=== PATIENT | female | born 1975 | race Caucasian/White ===

== ENCOUNTER 2020-12-31 14:51 | Emergency (ER) | payer BC ==
[~2020-12-31] VITALS: Ht 167.6 cm; Wt 68.5 kg
[~2020-12-31 14:51] MED LIST: FLEXERIL PO; PERCOCET 5-3251 EACH PO; PREDNISONE 20 M20 MG PO; PROZAC40 MG PO; WELLBUTRIN XL300 M1 PO
[2020-12-31 16:03] LABS: BASOPHILS 0.7 % (0.0-2.0); EOSINOPHILS 0.8 % (0.0-3.0); HEMATOCRIT 37.1 % (37.0-47.0); HEMOGLOBIN 12.4 gm/dL (12.0-15.0); LYMPHOCYTES 24.6 % (24.0-44.0); MCH 31.7 pg (26.0-34.0); MCHC 33.5 g/dL (28.0-37.0); MCV 94.7 fL (80.0-100.0); PLATELET COUNT 215 thou/uL (150-400); POLYS 65.9 % (36.0-66.0); RBC 3.92 mil/uL (4.20-5.00); RDW 12.9 % (10.5-14.5); WBC 4.5 thou/uL (4.0-11.0)
[2020-12-31 16:15] LABS: ANION GAP 10 mmol/L (7-16); BUN 5 mg/dL (7-18); CALCIUM 8.5 mg/dL (8.5-10.1); CHLORIDE 105 mmol/L (98-107); CO2 27 mmol/L (21-32); GLUCOSE 131 mg/dL (74-106); POTASSIUM 3.4 mmol/L (3.5-5.1); SODIUM 142 mmol/L (136-145)
[2020-12-31 16:24] LABS: TROPONIN-I <0.06 ng/mL (<0.06)
[2020-12-31 17:28] VITALS: BP 109/73
== END 2020-12-31 17:29 | disposition home or self-care (01) ==
LOC: ER 14:51
PROVIDERS: Emergency Medicine
DX: R07.89 Other chest pain (principal); Z79.899 Other long term (current) drug therapy; Z88.5 Allergy status to narcotic agent

== ENCOUNTER 2021-02-13 05:41 | Emergency (ER) | payer BC ==
[~2021-02-13] VITALS: Ht 167.6 cm; Wt 70.3 kg
[2021-02-13 06:19] LABS: ABSOLUTE NEUTROPHILS 3.6 thou/uL (1.4-8.2); BASOPHILS 0.5 % (0.0-2.0); HEMATOCRIT 37.9 % (37.0-47.0); HEMOGLOBIN 12.9 gm/dL (12.0-15.0); LYMPHOCYTES 28.4 % (24.0-44.0); MCH 31.6 pg (26.0-34.0); MCV 93.1 fL (80.0-100.0); MONOCYTES 8.1 % (1.0-8.0); PLATELET COUNT 230 thou/uL (150-400); RBC 4.07 mil/uL (4.20-5.00); RDW 12.8 % (10.5-14.5); WBC 5.9 thou/uL (4.0-11.0)
[2021-02-13 06:23] LABS: ANION GAP 15 mmol/L (7-16); BUN 8 mg/dL (7-18); CALCIUM 8.9 mg/dL (8.5-10.1); CHLORIDE 104 mmol/L (98-107); CO2 21 mmol/L (21-32); CREATININE 1.1 mg/dL (0.6-1.0); GLUCOSE 164 mg/dL (74-106); POTASSIUM 3.2 mmol/L (3.5-5.1); SODIUM 140 mmol/L (136-145)
[2021-02-13 06:33] LABS: ALBUMIN 3.9 g/dL (3.4-5.0); LIPASE 135 U/L (73-393); SGOT 14 U/L (15-37); SGPT 19 U/L (14-59); TOTAL BILIRUBIN 0.7 mg/dL (0.2-1.0); TOTAL PROTEIN 7.5 g/dL (6.4-8.2); TROPONIN-I <0.06 ng/mL (<0.06)
[2021-02-13 06:41] LABS: URINE BILIRUBIN NEGATIVE (Negative); URINE BLOOD NEGATIVE (Negative); URINE CLARITY CLEAR; URINE COLOR YELLOW; URINE GLUCOSE-RANDOM* NEGATIVE (Negative); URINE KETONES NEGATIVE (Negative); URINE LEUKOCYTES-REFLEX NEGATIVE (Negative); URINE NITRITE-REFLEX NEGATIVE (Negative); URINE PROTEIN (DIPSTICK) NEGATIVE (Negative); URINE SPECIFIC GRAVITY <= 1.005 (1.005-1.035); URINE UROBILINOGEN 0.2 E.U./dl (0.2-1.0)
--- NOTE | 2021-02-13 06:49 | EKG ---
[address] [address] ELECTROCARDIOGRAM REPORT Name: KADEN RODRIGUEZ Room #: [facility] [id number] Admission: 02/13/21 Attend Phys: Discharge: Date of : 71 Report #: [id number] [facility] ED Test Date: 2021-02-13 Test Time: 05:59:30 Pat Name: KADEN RODRIGUEZ Department: Room: Gender: F Boom Tender: mary ellen : 1975 Requested By: Judson Espinoza Order Number: [id number] MD: Cholo Pepe Measurements Intervals [place] Rate: 76 P: 37 MN: 148 QRS: 70 QRSD: 83 T: 29 QT: 418 QTc: 471 Interpretive Statements Sinus rhythm Compared to ECG 07/20/2003 19:59:49 No significant changes Electronically Signed On 02-13-2021 6:49:18 CDT by Cholo Pepe [email or web address] <ELECTRONICALLY SIGNED> By: Cholo Pepe MD, [facility] 02/13/21 [id number] Cholo Pepe MD, FACC /EPI
[2021-02-13] MEDS ORDERED: KLOR-CON 10 ER10 MEQ PO ×2 (06:52→06:55)
[2021-02-13] MEDS ORDERED: ZOFRAN ODT4 MG PO ×2 (06:52→06:55)
[2021-02-13 07:25] VITALS: BP 109/70
== END 2021-02-13 07:25 | disposition home or self-care (01) ==
LOC: ER 05:41
PROVIDERS: Emergency Medicine
DX: R11.2 Nausea with vomiting, unspecified (principal); Z20.822 Contact with and (suspected) exposure to COVID-19; R53.1 Weakness; R19.7 Diarrhea, unspecified; R10.13 Epigastric pain; Z98.890 Other specified postprocedural states; Z88.5 Allergy status to narcotic agent